=== PATIENT | female | born 1965 | race Caucasian/White ===

== ENCOUNTER 2017-05-24 19:12 | Emergency (ER) | payer OTHER ==
[~2017-05-24] VITALS: Ht 157.5 cm; Wt 130.0 kg
[~2017-05-24 19:12] MED LIST: ALBU6.7H INH; BENZ100 PO; NEBUMIS6 INH; PRED20 PO; ROBIACUDC PO
[2017-05-24 19:15] VITALS: BP 179/107; PULSE 93; RESP 24; TEMP 98.7; O2SAT 98
[2017-05-24] MEDS ORDERED: NEBULIZER1 MI1 (19:43)
[2017-05-24] MEDS ORDERED: ALBU.5I NEB (19:43)
[2017-05-24] MEDS ORDERED: SODIUM CHLORIDE 0.9% FLUSH 10 ML FLUSH IVF PRN (19:45)
[2017-05-24] MEDS: RESP: ALBUTEROL 2.5 MG/IPRATROPIUM 0.5 MG NEB (SCH) INH ×3 (19:45→20:49)
[2017-05-24] MEDS ORDERED: methylPREDNISolone SOD SUCC 125 MG/2 ML VIAL IV PUSH ONE (19:45)
--- NOTE | 2017-05-24 19:49 | PD ---
HPI Chief Complaint: Respiratory Symptoms Time Seen by Provider: 19:27 Travel History International Travel<30 days: No Contact w/Intl Traveler<30days: No Traveled to known affect area: No History of Present Illness HPI 51-year-old female that presents to the ED for evaluation of respiratory symptoms. Per patient she's been feeling short of breath and having a lot of congestion and cough that worsens with exertion for the past 3 weeks. Per patient she believes that she had bronchitis and she has a history of asthma she 's been using inhalers with some relief but the symptoms worsen and have not improved. Patient states that the nebulizers and agreement helping anymore. She states that even walking to steps causes her severe shortness of breath. She's been taking OTC meds with minimal relief. She has no PCP. She denies any history of smoking. No recent travel. She has chest pain with deep breaths. She has no allergies to medication. Denies been intubated recently. No recent admission. States having some fevers chills and sweats initially but not anymore. Pain per patient is like pressure and is 7 out of 10. PFSH Past Medical History Asthma: Yes Heart Rhythm Problems: No Cardiac Catheterization: No Cardiovascular Problems: No High Cholesterol: No Congestive Heart Failure: No Diabetes: No Diminished Hearing: No Respiratory: Yes (ASTHMA) ?: Not : 2 Para: 1 : 1 Past Surgical History Section: Yes Coronary Artery Bypass Graft: No Joint Replacement: Yes (R KNEE tendon repair) Social History Alcohol Use: Yes (12 pack/yr) Tobacco Use: No Substance Use: No Allergies-Medications (Allergen,Severity, Reaction): Coded Allergies: No Known Allergies (Unverified , 05/24/17) Reported Meds & Prescriptions Reported Meds & Active Scripts Active Azithromycin 250 Mg Tab 250 Mg PO DIRECTED Take 2 tabs (500 mg) on day 1 then 1 tab daily x 4 days. Duoneb (Ipratropium-Albuterol Neb) 0.5-2.5 Mg/3 Ml Neb 1 Nebule INH Q4HR NEB Proair Hfa 8.5 GM Inh (Albuterol Sulfate) 90 Mcg/Act Aer 2 Puff INH Q4-6H PRN 108 mcg/actuation Prednisone 20 Mg Tab 20 Mg PO BID 5 Days Reported Albuterol Neb (Albuterol Sulfate) 2.5 Mg/0.5 Ml Neb 2.5 Mg NEB Q6HR NEB Note: The Albuterol Sulfate Inhalation Solution is concentrated and must be diluted. Read complete instructions carefully before using. Nebulizer 1 Mis Mis Ea .ROUTE DIRECTED Review of Systems Except as stated in HPI: all other systems reviewed are Neg Physical Exam Narrative GENERAL: Well-nourished, well-developed patient in no apparent distress. SKIN: Warm and dry. HEAD: Atraumatic. Normocephalic. EYES: Pupils equal and round reactive to light and accommodation. No scleral icterus. No injection or drainage. ENT: No nasal bleeding or discharge. Mucous membranes pink and moist. TMs are clear with no sign of infection or perforation. No mastoid tenderness. Ear canals are intact bilaterally. No lymphadenopathy. Nostril mucosa is red and moist with clear mucus noted. No sinus tenderness to palpation noted. Tonsils are not enlarged or swollen. No ulvua Deviation. Tongue is midline. NECK: Trachea midline. No JVD. No meningeal signs noted CARDIOVASCULAR: Regular rate and rhythm. RESPIRATORY: No accessory muscle use. Patient has significant wheezing with expiratory and inspiratory. Breath sounds equal bilaterally. GASTROINTESTINAL: Abdomen soft, non-tender, nondistended. Hepatic and splenic margins not palpable. MUSCULOSKELETAL: Extremities without clubbing, cyanosis, or edema. No obvious deformities. Full range of motion of the upper and lower extremity is bilaterally. 2+ pulses bilaterally. NEUROLOGICAL: Awake and alert. No obvious cranial nerve deficits. Motor grossly within normal limits. Five out of 5 muscle strength in the arms and legs. Normal speech. PSYCHIATRIC: Appropriate mood and affect; insight and judgment normal. Data Data Last Documented VS Vital Signs Date Time Temp Pulse Resp B/P (MAP) Pulse Ox O2 Delivery O2 Flow Rate FiO2 05/24/17 19:56 83 16 161/103 (122) 98 Room Air 05/24/17 19:15 98.7 Orders Orders Basic Metabolic Panel (Bmp) (05/24/17 19:32) Complete Blood Count With Diff (05/24/17 19:32) Chest, Single Ap (05/24/17 19:32) Ecg Monitoring (05/24/17 19:32) Iv Access Insert/Monitor (05/24/17 19:32) Oximetry (05/24/17 19:32) Oxygen Administration (05/24/17 19:32) Methylprednisolone So Succ Inj (Solumedr (05/24/17 19:45) Albuterol-Ipratropium Neb (Duoneb Neb) (05/24/17 19:45) Sodium Chloride 0.9% Flush (Ns Flush) (05/24/17 19:45) Albuterol-Ipratropium Neb (Duoneb Neb) (05/24/17 20:45) Labs Laboratory Tests Test 05/24/17 19:45 White Blood Count 8.5 TH/MM3 Red Blood Count 4.91 MIL/MM3 Hemoglobin 13.3 GM/DL Hematocrit 40.4 % Mean Corpuscular Volume 82.2 FL Mean Corpuscular Hemoglobin 27.1 PG Mean Corpuscular Hemoglobin Concent 33.0 % Red Cell Distribution Width 15.6 % Platelet Count 292 TH/MM3 Mean Platelet Volume 8.7 FL Neutrophils (%) (Auto) 70.7 % Lymphocytes (%) (Auto) 14.6 % Monocytes (%) (Auto) 7.7 % Eosinophils (%) (Auto) 6.1 % Basophils (%) (Auto) 0.9 % Neutrophils # (Auto) 6.0 TH/MM3 Lymphocytes # (Auto) 1.2 TH/MM3 Monocytes # (Auto) 0.7 TH/MM3 Eosinophils # (Auto) 0.5 TH/MM3 Basophils # (Auto) 0.1 TH/MM3 CBC Comment DIFF FINAL Differential Comment Blood Urea Nitrogen 10 MG/DL Creatinine 0.82 MG/DL Random Glucose 98 MG/DL Calcium Level 9.0 MG/DL Sodium Level 139 MEQ/L Potassium Level 3.9 MEQ/L Chloride Level 106 MEQ/L Carbon Dioxide Level 25.8 MEQ/L Anion Gap 7 MEQ/L Estimat Glomerular Filtration Rate 74 ML/MIN [facility] Medical Decision Making Medical Screen Exam Complete: Yes Emergency Medical Condition: Yes Medical Record Reviewed: Yes Interpretation(s) CBC & BMP Diagram 05/24/17 19:45 Calcium Level 9.0 CXR negative Differential Diagnosis Asthma exacerbation versus bronchitis versus pneumonia versus respiratory failure Narrative Course 51-year-old female that presents to the ED for evaluation of respiratory symptoms. Patient was properly examined and was found to have signs and symptoms consistent appears to be likely asthma exacerbation. Labs and imaging were ordered. She was given Solu-Medrol as well as breathing treatments here. Labs and imaging showed no sign of acute disease. Patient was reassured. Patient feels improved after 3 breathing treatments. Still very wheezy. She was given 2 more breathing treatments with good improvement. Case was discussed in my attending Dr. Moe who evaluated the patient herself and recommends discharge. Patient will be sent home with prescriptions for azithromycin, prednisone, albuterol inhaler as well as nebulizer medication. She was told to follow closely with the PCP. See ED worsening symptoms. She was given information for the free clinic. See ED worsening symptoms. Diagnosis Primary Impression: Acute asthma exacerbation Qualified Codes: J45.31 - Mild persistent asthma with (acute) exacerbation Additional Impression: Bronchitis Patient Instructions: General Instructions Departure Forms: Tests/Procedures, Work Release Enter return to work date: May 27, 2017 Additional Instructions: Take medications as prescribed. Follow with PCP. See ED worsening symptoms. Med/Other Pt SpecificInfo: Prescription(s) given Scripts Azithromycin (Azithromycin) 250 Mg Tab 250 MG PO DIRECTED for Infection, #6 TAB 0 Refills Take 2 tabs (500 mg) on day 1 then 1 tab daily x 4 days. Prov: Rosalina Moe MD 05/24/17 Ipratropium-Albuterol Neb (Duoneb) 0.5-2.5 Mg/3 Ml Neb 1 NEBULE INH Q4HR NEB for Breathing Treatment, #180 NEBULE 0 Refills Prov: Rosalina Moe MD 05/24/17 Albuterol 8.5 GM Inh (Proair Hfa 8.5 GM Inh) 90 Mcg/Act Aer 2 PUFF INH Q4-6H Y for SHORTNESS OF BREATH, #1 INHALER 0 Refills 108 mcg/actuation Prov: Rosalina Moe MD 05/24/17 Prednisone (Prednisone) 20 Mg Tab 20 MG PO BID for 5 Days, #10 TAB 0 Refills Prov: Rosalina Moe MD 05/24/17 Disposition: 01 DISCHARGE HOME Condition: Stable Miguel Angel Schreiber May 24, 2017 19:49
[2017-05-24 19:56] VITALS: BP 161/103; PULSE 83; RESP 16; O2SAT 98
[2017-05-24 20:07] LABS: BASOPHIL # 0.1 TH/MM3 (0-0.2); BASOPHIL % 0.9 % (0.0-2.0); EOSINOPHIL # 0.5 TH/MM3 (0-0.4); EOSINOPHIL % 6.1 % (0.0-4.0); HEMATOCRIT 40.4 % (35.0-46.0); HEMO FLAGS DIFF FINAL; LYMPH % 14.6 % (9.0-44.0); LYMPHOCYTE # 1.2 TH/MM3 (1.0-4.8); MEAN CELL VOLUME 82.2 FL (80.0-100.0); MEAN CORPUSCULAR HEMOGLOBIN 27.1 PG (27.0-34.0); MONO % 7.7 % (0.0-8.0); NEUT % 70.7 % (16.0-70.0); PLATELET COUNT 292 TH/MM3 (150-450); RED BLOOD COUNT 4.91 MIL/MM3 (4.00-5.30); RED CELL DISTRIBUTION WIDTH 15.6 % (11.6-17.2); WHITE BLOOD COUNT 8.5 TH/MM3 (4.0-11.0)
--- NOTE | 2017-05-24 20:13 | RADRPT ---
EXAM DATE/TIME: 05/24/2017 19:52 [place] COMPARISON: No previous studies available for comparison. INDICATIONS : Shortness of breath and coughing. MEDICAL HISTORY : Asthma. SURGICAL HISTORY : None. ENCOUNTER: Initial ACUITY: 2 weeks PAIN SCORE: 0/10 LOCATION: Bilateral chest FINDINGS: A single view of the chest demonstrates the lungs to be symmetrically aerated without evidence of mas s, infiltrate or effusion. The cardiomediastinal contours are unremarkable. Osseous structures are intact. CONCLUSION: No evidence of acute cardiopulmonary disease. Yoseph Zepeda MD on May 24, 2017 at 20:11 Board Certified Radiologist. This report was verified electronically.
[2017-05-24 20:17] LABS: BICARBONATE 25.8 MEQ/L (21.0-32.0); POTASSIUM 3.9 MEQ/L (3.5-5.1)
--- NOTE | 2017-05-24 20:42 | PD ---
Data Data Last Documented VS Vital Signs Date Time Temp Pulse Resp B/P (MAP) Pulse Ox O2 Delivery O2 Flow Rate FiO2 05/24/17 19:56 83 16 161/103 (122) 98 Room Air 05/24/17 19:15 98.7 Orders Orders Basic Metabolic Panel (Bmp) (05/24/17 19:32) Complete Blood Count With Diff (05/24/17 19:32) Chest, Single Ap (05/24/17 19:32) Ecg Monitoring (05/24/17 19:32) Iv Access Insert/Monitor (05/24/17 19:32) Oximetry (05/24/17 19:32) Oxygen Administration (05/24/17 19:32) Methylprednisolone So Succ Inj (Solumedr (05/24/17 19:45) Albuterol-Ipratropium Neb (Duoneb Neb) (05/24/17 19:45) Sodium Chloride 0.9% Flush (Ns Flush) (05/24/17 19:45) Labs Laboratory Tests Test 05/24/17 19:45 White Blood Count 8.5 TH/MM3 Red Blood Count 4.91 MIL/MM3 Hemoglobin 13.3 GM/DL Hematocrit 40.4 % Mean Corpuscular Volume 82.2 FL Mean Corpuscular Hemoglobin 27.1 PG Mean Corpuscular Hemoglobin Concent 33.0 % Red Cell Distribution Width 15.6 % Platelet Count 292 TH/MM3 Mean Platelet Volume 8.7 FL Neutrophils (%) (Auto) 70.7 % Lymphocytes (%) (Auto) 14.6 % Monocytes (%) (Auto) 7.7 % Eosinophils (%) (Auto) 6.1 % Basophils (%) (Auto) 0.9 % Neutrophils # (Auto) 6.0 TH/MM3 Lymphocytes # (Auto) 1.2 TH/MM3 Monocytes # (Auto) 0.7 TH/MM3 Eosinophils # (Auto) 0.5 TH/MM3 Basophils # (Auto) 0.1 TH/MM3 CBC Comment DIFF FINAL Differential Comment Blood Urea Nitrogen 10 MG/DL Creatinine 0.82 MG/DL Random Glucose 98 MG/DL Calcium Level 9.0 MG/DL Sodium Level 139 MEQ/L Potassium Level 3.9 MEQ/L Chloride Level 106 MEQ/L Carbon Dioxide Level 25.8 MEQ/L Anion Gap 7 MEQ/L Estimat Glomerular Filtration Rate 74 ML/MIN [facility] Supervised Visit with KIRT: Yes Narrative Course The history, exam, and medical decision-making in the associated midlevel provider note were completed with my assistance. I reviewed and agree with the findings presented. I attest that I had a [id number] encounter with the patient on the same day, and personally performed and documented my assessment and findings in the medical record. *My assessment and Findings: This is a 51-year-old female who has a history of bronchitis who presents to the emergency department with increasing shortness of breath it's been going on for several days, worse with exertion and improved with rest. Patient is diffusely wheezing on exam. She says she's been taking her bronchodilator treatments but she's not been rapidly improving. She received 3 bronchodilators here in the emergency department and on reassessment she says she feels much better. She is 98% on room air. Chest x-ray is negative for pulmonary edema or pneumonia. I think she can safely be discharged home on prednisone and azithromycin. She was referred to the [facility] for outpatient follow-up and she was asked to return to the emergency department if she worsens. Rosalina Moe MD May 24, 2017 20:42
[2017-05-24] MEDS ORDERED: ALBUAER3 INH (20:45)
[2017-05-24] MEDS ORDERED: PRED20 PO (20:45)
[2017-05-24] MEDS ORDERED: AZIT250T3 PO (20:45)
[2017-05-24] MEDS ORDERED: IPRASOL INH (20:45)
[2017-06-18] MEDS ORDERED: CYAN1TAB24 PO (12:32)
[2017-06-18] MEDS ORDERED: ADVA250A INH (12:51)
== END 2017-05-24 21:28 | disposition home or self-care (01) ==
LOC: NEPC 19:12
DX: J45.31 Mild persistent asthma with (acute) exacerbation (principal); J40 Bronchitis, not specified as acute or chronic; Z79.51 Long term (current) use of inhaled steroids; Z79.899 Other long term (current) drug therapy
CPT/HCPCS: 71010; 80048; 85025; 94640; 94664; 96374; 99285; J2930

== ENCOUNTER 2017-09-16 21:07 | Emergency (ER) | payer OTHER ==
[2017-09-17] MEDS: LIDOCAINE HCL 1% PF 30 ML VIAL XX (00:39)
[2017-09-17] MEDS: predniSONE 50 MG TAB PO (00:39)
== END 2017-09-17 00:43 | disposition home or self-care (01) ==
LOC: NEPK 21:07
DX: J18.0 Bronchopneumonia, unspecified organism (principal)
CPT/HCPCS: 71046; 96372; 99284-25